=== PATIENT | female | born 2000 | race Two or more races ===

== ENCOUNTER 2024-03-18 21:27 | Emergency (ER) | payer OTHER ==
[~2024-03-18] VITALS: Ht 152.4 cm; Wt 69.9 kg
[2024-03-18 22:42] VITALS: BP 118/78; TEMP 98.3; O2SAT 100
== END 2024-03-18 23:06 | disposition home or self-care (01) ==
LOC: ER 21:32
DX: T24.202A Burn of second degree of unspecified site of left lower limb, except ankle and foot, initial encounter (principal); X16.XXXA Contact with hot heating appliances, radiators and pipes, initial encounter; Y93.89 Activity, other specified; Y92.89 Other specified places as the place of occurrence of the external cause; Y99.8 Other external cause status